=== PATIENT | female | born 1940 | race Caucasian/White ===

== ENCOUNTER 2018-09-14 11:45 | Inpatient (IN) | payer OTHER ==
--- NOTE | 2018-09-14 12:31 | ED PDOC ---
HPI: Abdomen Time Seen by Provider: 09/14/18 12:06 Chief Complaint (Provider): abdominal pain and constipation History Per: Patient History/Exam Limitations: no limitations Onset/Duration Of Symptoms: Days (x3) Current Symptoms Are (Timing): Still Present Associated Symptoms: denies: Fever, Chills, Nausea, Vomiting, Urinary Symptoms Additional Complaint(s): Kylee Oneal is a 78 year old female, with a past medical history of HTN and diabetes, who presents to the emergency department complaining of lower abdominal pain associated with constipation onset for x3 days. Patient states she hasn't had a bowel movement in x3 days but reports she's had difficulty havi ng bowel movements since a colon surgery done x10 years ago. She denies any fever, chills, nausea, vomit or dysuria. No further medical complaints. PMD: Dr. Chan Past Medical History Reviewed: Historical Data, Nursing Documentation, Vital Signs Vital Signs: Last Vital Signs Temp 97.8 F 09/14/18 11:48 Pulse 109 H 09/14/18 11:48 Resp 18 09/14/18 11:48 BP 139/82 09/14/18 11:48 Pulse Ox 96 09/14/18 11:48 - Medical History PMH: Diabetes, HTN - Surgical History Other surgeries: Colon surgery - Family History Family History: States: Unknown Family Hx - Home Medications Home Medications: Ambulatory Orders Medication Instructions Recorded Brimonidine Tartrate [Alphagan P 1 drop OS BID 09/14/18 0.1 % Ophth] Glimepiride [Amaryl] 4 mg PO BID 09/14/18 Latanoprost/Pf [Latanoprost 0.005% 1 drop OS DAILY 09/14/18 Eye Drop] Linagliptin [Tradjenta] 5 mg PO DAILY 09/14/18 Losartan Potassium 100 mg PO DAILY 09/14/18 Nifedipine [Nifedipine ER] 30 mg PO DAILY 09/14/18 metFORMIN [glucOPHAGE] 850 mg PO BID 09/14/18 - Allergies Allergies/Adverse Reactions: Allergies Allergy/AdvReac Type Severity Reaction Status Date / Time No Known Allergies Allergy Verified 09/14/18 12:27 Review of Systems ROS Statement: Except As Marked, All Systems Reviewed And Found Negative Constitutional: Negative for: Fever, Chills Gastrointestinal: Positive for: Abdominal Pain (lower), Constipation. Negative for: Nausea, Vomiting Genitourinary Female: Negative for: Dysuria Physical Exam - Reviewed Nursing Documentation Reviewed: Yes Vital Signs Reviewed: Yes - Physical Exam Appears: Positive for: No Acute Distress Head Exam: Positive for: ATRAUMATIC, NORMAL INSPECTION, NORMOCEPHALIC Skin: Positive for: Normal Color, Warm, Dry Eye Exam: Positive for: Normal appearance, EOMI, PERRL Neck: Positive for: Painless ROM Cardiovascular/Chest: Positive for: Regular Rate, Rhythm. Negative for: Murmur Respiratory: Positive for: Normal Breath Sounds. Negative for: Respiratory Distress Gastrointestinal/Abdominal: Positive for: Normal Exam, Soft. Negative for: Tenderness, Guarding, Rebound Back: Positive for: Normal Inspection. Negative for: L CVA Tenderness, R CVA Tenderness, Vertebral Tenderness Extremity: Positive for: Normal ROM (upper and lower extremities). Negative for: Deformity, Swelling Neurologic/Psych: Positive for: Alert, Oriented - Laboratory Results Result Diagrams: 09/14/18 12:50 09/14/18 14:15 - ECG O2 Sat by Pulse Oximetry: 96 (RA) Pulse Ox Interpretation: Normal Medical Decision Making Medical Decision Making: Time: 12:06 Initial Impression: abdominal pain Initial Plan: --Abd & Pelvis IV Contrast CT --EKG --CMP --Urine dipstick --CBC w/ differential --PTT --PT --Urinalysis --Reevaluation 1700 CT Abdomen and Pelvis FINDINGS: LOWER THORAX: Unremarkable. LIVER: Unremarkable. No gross lesion or ductal dilatation. GALLBLADDER AND BILE DUCTS: Unremarkable. PANCREAS: Unremarkable. No gross lesion or ductal dilatation. SPLEEN: Unremarkable. ADRENALS: Unremarkable. No mass. KIDNEYS AND URETERS: Nonobstructing right upper pole renal calculus, 5 mm. This is unchanged from prior examination. No left renal calculus. Left lower pole exophytic cortical cyst, 1.6 cm, minimally increased in size from prior, likely due to differences in technique of measurement. No hydronephrosis. VASCULATURE: No aortic aneurysm. There is atherosclerotic calcification of the abdominal aorta and iliac vessels. BOWEL: There is mural thickening of the inferior rectum with infiltration of the perirectal fat and presacral edema. Findings may reflect an infectious or inflammatory proctitis. Rule out neoplasm. No other abnormal bowel loops. No bowel obstruction. APPENDIX: Not identified. No secondary findings. PERITONEUM: There is a small supraumbilical ventral hernia in the midline, containing only mesenteric fat. No ascites or pneumoperitoneum. LYMPH NODES: Unremarkable. No enlarged lymph nodes. BLADDER: Unremarkable. REPRODUCTIVE: Status post hysterectomy BONES: No acute fracture. OTHER FINDINGS: None. IMPRESSION: Circumferential mural thickening of the inferior rectum with infiltration of the perirectal fat and abnormal presacral soft tissue edema. Findings concerning for infectious or inflammatory proctitis. Rule out neoplasm. No evidence of abscess. No other acute abnormality. Minor findings as above. Scribe Attestation: Documented by Johnnie Sigala, acting as a scribe for Lona Fierro MD. Provider Scribe Attestation: All medical record entries made by the Scribe were at my direction and personally dictated by me. I have reviewed the chart and agree that the record accurately reflects my personal performance of the history, physical exam, medical decision making, and the department course for this patient. I have also personally directed, reviewed, and agree with the discharge instructions and disposition. Disposition - Clinical Impression Clinical Impression: Proctitis, Sepsis - Patient ED Disposition Is Patient to be Admitted: Yes - Disposition Disposition Time: 17:21 Condition: STABLE - Pt Status Changed To: Hospital Disposition Of: Inpatient - Admit Certification Admit to Inpatient:: After my assessment, the patient will require hosp italization for at least two midnights. This is because of the severity of symptoms shown, intensity of services needed, and/or the medical risk in this patient being treated as an outpatient. - POA Present On Arrival: None
[2018-09-14 13:09] LABS: INR 1.1; PROTHROMBIN TIME 12.1 Seconds (9.8-13.1)
[2018-09-14 13:10] LABS: BASO # 0.1 K/uL (0.0-0.2); BASO % 0.4 % (0.0-2.0); EOS # 0.1 K/uL (0.0-0.7); EOS % 0.4 % (0.0-4.0); HEMOGLOBIN 15.6 g/dL (12.0-16.0); LYMPH # 1.9 K/uL (1.0-4.3); LYMPH % 10.6 % (20.0-40.0); MEAN CELL VOLUME 88.5 fl (81.0-99.0); MEAN CORPUSCULAR HEMOGLOBIN 29.8 pg (27.0-31.0); MEAN CORPUSCULAR HGB CONC 33.7 g/dL (33.0-37.0); MEAN PLATELET VOLUME 8.6 fl (7.2-11.7); MONO # 0.9 K/uL (0.0-0.8); MONO % 4.7 % (0.0-10.0); NEUT # 15.1 K/uL (1.8-7.0); NEUT % 83.9 % (50.0-75.0); NRBC % 0.1 % (0.0-0.0); RBC 5.22 Mil/uL (3.80-5.20); RED CELL DISTRIBUTION WIDTH 13.6 % (11.5-14.5)
[2018-09-14 13:12] LABS: SQUAMOUS EPITHIAL 2 /hpf (0-5); URINE BACTERIA FEW (<OCC); URINE BILIRUBIN NEGATIVE (NEGATIVE); URINE BLOOD SMALL (NEGATIVE); URINE CLARITY SLIGHTY-CLOUDY (Clear); URINE COLOR YELLOW (YELLOW); URINE GLUCOSE (UA) NEG (Normal); URINE LEUKOCYTE ESTERASE NEG Leu/uL (Negative); URINE PROTEIN 30 mg/dL (NEGATIVE); URINE UROBILINOGEN 0.2-1.0 mg/dL (0.2-1.0)
[2018-09-14 14:33] LABS: ALB/GLOB RATIO 1.1 (1.0-2.1); ALT/SGPT 28 U/L (9-52); AST/SGOT 22 U/L (14-36); BLOOD UREA NITROGEN 13 mg/dl (7-17); CALCIUM 9.8 mg/dL (8.4-10.2); GFR NON-AFRICAN AMERICAN > 60
--- NOTE | 2018-09-14 15:05 | CARD ---
APPROVED REPORT Date of service: 09/14/2018 EKG Measurement Heart [id number] <Conclusion> Normal sinus rhythm Normal ECG
--- NOTE | 2018-09-14 15:52 | CT ---
Date of service: 09/14/2018 PROCEDURE: CT Abdomen and Pelvis without intravenous contrast HISTORY: Abd pain COMPARISON: 11/17/2015 TECHNIQUE: Without contrast.. Contrast dose: 0 Radiation dose: Total exam DLP = 559.43 mGy-cm. This CT exam was performed using one or more of the following dose reduction techniques: Automated exposure control, adjustment of the mA and/or kV according to patient size, and/or use of iterative reconstruction technique. FINDINGS: LOWER THORAX: Unremarkable. LIVER: Unremarkable. No gross lesion or ductal dilatation. GALLBLADDER AND BILE DUCTS: Unremarkable. PANCREAS: Unremarkable. No gross lesion or ductal dilatation. SPLEEN: Unremarkable. ADRENALS: Unremarkable. No mass. KIDNEYS AND URETERS: Nonobstructing right upper pole renal calculus, 5 mm. This is unchanged from prior examination. No left renal calculus. Left lower pole exophytic cortical cyst, 1.6 cm, minimally increased in size from prior, likely due to differences in technique of measurement. No hydronephrosis. VASCULATURE: No aortic aneurysm. There is atherosclerotic calcification of the abdominal aorta and iliac vessels. BOWEL: There is mural thickening of the inferior rectum with infiltration of the perirectal fat and presacral edema. Findings may reflect an infectious or inflammatory proctitis. Rule out neoplasm. No other abnormal bowel loops. No bowel obstruction. APPENDIX: Not identified. No secondary findings. PERITONEUM: There is a small supraumbilical ventral hernia in the midline, containing only mesenteric fat. No ascites or pneumoperitoneum. LYMPH NODES: Unremarkable. No enlarged lymph nodes. BLADDER: Unremarkable. REPRODUCTIVE: Status post hysterectomy BONES: No acute fracture. OTHER FINDINGS: None. IMPRESSION: Circumferential mural thickening of the inferior rectum with infiltration of the perirectal fat and abnormal presacral soft tissue edema. Findings concerning for infectious or inflammatory proctitis. Rule out neoplasm. No evidence of abscess. No other acute abnormality. Minor findings as above.
[2018-09-14] MEDS ORDERED: metroNIDAZOLE 500mg/100ml NS 100 ML IV STA (17:13)
[2018-09-14] MEDS ORDERED: Ciprofloxacin 400mg/200ml D5W 400 MG/200 ML BAG IV STA (17:13)
[2018-09-14] MEDS ORDERED: metroNIDAZOLE 500mg/100ml NS 100 ML IVPB ONE (17:23)
[2018-09-14] MEDS ORDERED: Ciprofloxacin 400mg/200ml D5W 400 MG/200 ML BAG IVPB ONE (17:23)
[2018-09-14 17:35] LABS: VENOUS BLOOD GAS BASE EXCESS 0.8 mmol/L (0.0-2.0); VENOUS BLOOD GAS PCO2 46 mmHg (40-60); VENOUS BLOOD GAS PO2 34 mm/Hg (30-55); VENOUS BLOOD PH 7.37 (7.32-7.43)
--- NOTE | 2018-09-14 18:31 | CP.PCM.HP ---
<Yoli Rivers - Last Filed: 09/14/18 20:20> History of Present Illness - History of Present Illness History of Present Illness: 78 year old female presented with complaints of 3 day history of rectal pain. She endorses history of constipation, requiring manual disimpaction that she performs on herself intermittently using a glove. She last performed this 4 days ago, pain began the next day and has persisted. Pain with sitting and bowel movement, daughter denies blood in stool. States she must wear pad due to stool leakage sometimes. She states she has had 2 colonoscopies in the past, unsure of results. No GI doctor. ROS: denies fevers, chills, chest pain, dyspnea, nausea, vomiting, abdominal pain, pedal edema. 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 PMD: Dr. Chan PMH: HTN, DM, HLD, glaucoma, blind in right eye, constipation Allergies: NKDA Social: current smoker 4-5 cigarretes per day since age of 14 ( 16 pack year hx), no etoh use Surgical hx: appendectomy, btl, fibroidectomy Medications: not available for review Present on Admission - Present on Admission Any Indicators Present on Admission: No Review of Systems - Constitutional Constitutional: absent: Chills, Fever, Headache - EENT Eyes: Other (blind left eye, able to see shadows out of left eye). absent: Change in Vision Nose/Mouth/Throat: absent: Nasal Congestion, Nasal Discharge - Cardiovascular Cardiovascular: absent: Chest Pain, Dyspnea, Dyspnea on Exertion, Leg Edema - Respiratory Respiratory: absent: Cough, Dyspnea - Gastrointestinal Gastrointestinal: Constipation, Fecal Incontinence. absent: Bloating, Change in Bowel Habits, Dyspepsia, Excessive Flatus, Hematemesis, Hematochezia, Nausea Past Patient History - Tetanus Immunizations Tetanus Immunization: Unknown - Past Social History Smoking Status: Light Smoker < 10 Cigarettes Daily Alcohol: None Drugs: Denies - CARDIAC Hx Hypertension: Yes - ENDOCRINE/METABOLIC Hx Diabetes Insipidus: Yes - PSYCHIATRIC Hx Substance Use: No - SURGICAL HISTORY Hx Surgeries: Yes Hx Appendectomy: Yes - ANESTHESIA Hx Anesthesia: Yes Meds Allergies/Adverse Reactions: Allergies Allergy/AdvReac Type Severity Reaction Status Date / Time No Known Allergies Allergy Verified 09/14/18 12:27 Physical Exam - Constitutional Appears: Non-toxic, No Acute Distress - Head Exam Head Exam: NORMAL INSPECTION - Eye Exam Eye Exam: absent: PERRL Additional comments: right eye ptosis, unable to see from right eye - ENT Exam ENT Exam: Mucous Membranes Moist - Respiratory Exam Respiratory Exam: Clear to Auscultation Bilateral, NORMAL BREATHING PATTERN. absent: Prolonged Expiratory Phase, Rales, Rhonchi, Wheezes, Respiratory Distress - Cardiovascular Exam Cardiovascular Exam: REGULAR RHYTHM, +S1, +S2 - GI/Abdominal Exam GI & Abdominal Exam: Hypoactive Bowel Sounds, Soft. absent: Distended, Guarding, Tenderness - Rectal Exam Rectal Exam: Hemorrhoids (no external hemorrhoids noted, ), NORMAL INSPECTION - Extremities Exam Extremities exam: Positive for: normal inspection. Negative for: pedal edema, tenderness - Neurological Exam Neurological exam: Alert - Psychiatric Exam Psychiatric exam: Normal Affect, Normal Mood - Skin Skin Exam: Dry, Intact, Normal Color Results - Vital Signs Recent Vital Signs: Last Vital Signs Temp 97.6 F 09/14/18 14:07 Pulse 87 09/14/18 16:44 Resp 20 09/14/18 16:44 BP 148/79 09/14/18 16:44 Pulse Ox 96 09/14/18 17:49 - Labs Result Diagrams: 09/14/18 12:50 09/14/18 14:15 Labs: Laboratory Results - last 24 hr 09/14/18 09/14/18 09/14/18 11:57 12:50 12:50 WBC 18.0 H RBC 5.22 H Hgb 15.6 Hct 46.1 MCV 88.5 MCH 29.8 MCHC 33.7 RDW 13.6 Plt Count 284 MPV 8.6 Neut % (Auto) 83.9 H Lymph % (Auto) 10.6 L [place] % (Auto) 4.7 Eos % (Auto) 0.4 Baso % (Auto) 0.4 Neut # (Auto) 15.1 H Lymph # (Auto) 1.9 [place] # (Auto) 0.9 H Eos # (Auto) 0.1 Baso # (Auto) 0.1 PT 12.1 INR 1.1 APTT 34.0 pO2 VBG pH VBG pCO2 VBG HCO3 VBG Total CO2 VBG O2 Sat (Calc) VBG Base Excess VBG Potassium Glucose Lactate FiO2 Sodium Potassium Chloride Carbon Dioxide Anion Gap BUN Creatinine Est GFR ( Amer) Est GFR (Non-Af Amer) POC Glucose (mg/dL) 133 H Random Glucose Calcium Total Bilirubin AST ALT Alkaline Phosphatase Total Protein Albumin Globulin Albumin/Globulin Ratio Venous Blood Potassium Urine Color Urine Clarity Urine pH Ur Specific [place] Urine Protein Urine Glucose (UA) Urine Ketones Urine Blood Urine Nitrate Urine Bilirubin Urine Urobilinogen Ur Leukocyte Esterase Urine RBC (Auto) Urine Microscopic WBC Ur Squamous Epith Cells Urine Bacteria 09/14/18 09/14/18 09/14/18 13:05 14:15 17:30 WBC RBC Hgb Hct MCV MCH MCHC RDW Plt Count MPV Neut % (Auto) Lymph % (Auto) [place] % (Auto) Eos % (Auto) Baso % (Auto) Neut # (Auto) Lymph # (Auto) [place] # (Auto) Eos # (Auto) Baso # (Auto) PT INR APTT pO2 34 VBG pH 7.37 VBG pCO2 46 VBG HCO3 24.6 VBG Total CO2 28.0 VBG O2 Sat (Calc) 72.7 H VBG Base Excess 0.8 VBG Potassium 4.4 Glucose 157 H Lactate 1.4 FiO2 21.0 Sodium 140 138.0 Potassium 4.2 Chloride 106 105.0 Carbon Dioxide 27 Anion Gap 11 BUN 13 Creatinine 0.8 Est GFR ( Amer) > 60 Est GFR (Non-Af Amer) > 60 POC Glucose (mg/dL) Random Glucose 160 H Calcium 9.8 Total Bilirubin 0.5 AST 22 ALT 28 Alkaline Phosphatase 104 Total Protein 7.7 Albumin 4.0 Globulin 3.7 Albumin/Globulin Ratio 1.1 Venous Blood Potassium 4.4 Urine Color Yellow Urine Clarity Slighty-cloudy Urine pH 7.0 Ur Specific [place] 1.005 Urine Protein 30 Urine Glucose (UA) Neg Urine Ketones Negative Urine Blood Small Urine Nitrate Negative Urine Bilirubin Negative Urine Urobilinogen 0.2-1.0 Ur Leukocyte Esterase Neg Urine RBC (Auto) 1 Urine Microscopic WBC 1 Ur Squamous Epith Cells 2 Urine Bacteria Few H Assessment & Plan - Assessment and Plan (Free Text) Assessment: 78 year old female with history of constipation, admitted for proctitis. She is afebrile, with leukocytosis. Patient is hemodynamically stable. Proctitis noted of CT, likely secondary to patient performing manual disimpaction due to constipation. #Proctitis #Non insulin dependent diabetes mellitus #HTN #DVT prophylaxis -start cipro/flagyl -GI consult -resume home medications -SCDs case d/w attending. <Saravanan Ramirez D - Last Filed: 09/14/18 22:56> Results - Vital Signs Recent Vital Signs: Last Vital Signs Temp 97.7 F 09/14/18 20:36 Pulse 89 09/14/18 20:36 Resp 20 09/14/18 20:36 BP 159/87 H 09/14/18 20:36 Pulse Ox 96 09/14/18 20:36 - Labs Result Diagrams: 09/14/18 12:50 09/14/18 14:15 Labs: Laboratory Results - last 24 hr 09/14/18 09/14/18 09/14/18 11:57 12:50 12:50 WBC 18.0 H RBC 5.22 H Hgb 15.6 Hct 46.1 MCV 88.5 MCH 29.8 MCHC 33.7 RDW 13.6 Plt Count 284 MPV 8.6 Neut % (Auto) 83.9 H Lymph % (Auto) 10.6 L [place] % (Auto) 4.7 Eos % (Auto) 0.4 Baso % (Auto) 0.4 Neut # (Auto) 15.1 H Lymph # (Auto) 1.9 [place] # (Auto) 0.9 H Eos # (Auto) 0.1 Baso # (Auto) 0.1 PT 12.1 INR 1.1 APTT 34.0 pO2 VBG pH VBG pCO2 VBG HCO3 VBG Total CO2 VBG O2 Sat (Calc) VBG Base Excess VBG Potassium Glucose Lactate FiO2 Sodium Potassium Chloride Carbon Dioxide Anion Gap BUN Creatinine Est GFR ( Amer) Est GFR (Non-Af Amer) POC Glucose (mg/dL) 133 H Random Glucose Calcium Total Bilirubin AST ALT Alkaline Phosphatase Total Protein Albumin Globulin Albumin/Globulin Ratio Venous Blood Potassium Urine Color Urine Clarity Urine pH Ur Specific [place] Urine Protein Urine Glucose (UA) Urine Ketones Urine Blood Urine Nitrate Urine Bilirubin Urine Urobilinogen Ur Leukocyte Esterase Urine RBC (Auto) Urine Microscopic WBC Ur Squamous Epith Cells Urine Bacteria 09/14/18 09/14/18 09/14/18 13:05 14:15 17:30 WBC RBC Hgb Hct MCV MCH MCHC RDW Plt Count MPV Neut % (Auto) Lymph % (Auto) [place] % (Auto) Eos % (Auto) Baso % (Auto) Neut # (Auto) Lymph # (Auto) [place] # (Auto) Eos # (Auto) Baso # (Auto) PT INR APTT pO2 34 VBG pH 7.37 VBG pCO2 46 VBG HCO3 24.6 VBG Total CO2 28.0 VBG O2 Sat (Calc) 72.7 H VBG Base Excess 0.8 VBG Potassium 4.4 Glucose 157 H Lactate 1.4 FiO2 21.0 Sodium 140 138.0 Potassium 4.2 Chloride 106 105.0 Carbon Dioxide 27 Anion Gap 11 BUN 13 Creatinine 0.8 Est GFR ( Amer) > 60 Est GFR (Non-Af Amer) > 60 POC Glucose (mg/dL) Random Glucose 160 H Calcium 9.8 Total Bilirubin 0.5 AST 22 ALT 28 Alkaline Phosphatase 104 Total Protein 7.7 Albumin 4.0 Globulin 3.7 Albumin/Globulin Ratio 1.1 Venous Blood Potassium 4.4 Urine Color Yellow Urine Clarity Slighty-cloudy Urine pH 7.0 Ur Specific [place] 1.005 Urine Protein 30 Urine Glucose (UA) Neg Urine Ketones Negative Urine Blood Small Urine Nitrate Negative Urine Bilirubin Negative Urine Urobilinogen 0.2-1.0 Ur Leukocyte Esterase Neg Urine RBC (Auto) 1 Urine Microscopic WBC 1 Ur Squamous Epith Cells 2 Urine Bacteria Few H 09/14/18 09/14/18 18:32 21:06 WBC RBC Hgb Hct MCV MCH MCHC RDW Plt Count MPV Neut % (Auto) Lymph % (Auto) [place] % (Auto) Eos % (Auto) Baso % (Auto) Neut # (Auto) Lymph # (Auto) [place] # (Auto) Eos # (Auto) Baso # (Auto) PT INR APTT pO2 VBG pH VBG pCO2 VBG HCO3 VBG Total CO2 VBG O2 Sat (Calc) VBG Base Excess VBG Potassium Glucose Lactate FiO2 Sodium Potassium Chloride Carbon Dioxide Anion Gap BUN Creatinine Est GFR ( Amer) Est GFR (Non-Af Amer) POC Glucose (mg/dL) 239 H 161 H Random Glucose Calcium Total Bilirubin AST ALT Alkaline Phosphatase Total Protein Albumin Globulin Albumin/Globulin Ratio Venous Blood Potassium Urine Color Urine Clarity Urine pH Ur Specific [place] Urine Protein Urine Glucose (UA) Urine Ketones Urine Blood Urine Nitrate Urine Bilirubin Urine Urobilinogen Ur Leukocyte Esterase Urine RBC (Auto) Urine Microscopic WBC Ur Squamous Epith Cells Urine Bacteria Attending/Attestation - Attestation I have personally seen and examined this patient.: Yes I have fully participated in the care of the patient.: Yes I have reviewed all pertinent clinical information: Yes
[2018-09-14] MEDS: Ciprofloxacin 400mg/200ml D5W 400 MG/200 ML BAG IVPB SCH (21:02)
[2018-09-15] MEDS: metroNIDAZOLE 500mg/100ml NS 100 ML IVPB SCH ×3 (00:21→16:24)
[2018-09-15 06:25] LABS: BASO # 0.1 K/uL (0.0-0.2); BASO % 0.6 % (0.0-2.0); EOS # 0.1 K/uL (0.0-0.7); EOS % 0.4 % (0.0-4.0); HEMOGLOBIN 14.1 g/dL (12.0-16.0); LYMPH # 2.3 K/uL (1.0-4.3); LYMPH % 16.4 % (20.0-40.0); MEAN CELL VOLUME 88.8 fl (81.0-99.0); MEAN CORPUSCULAR HEMOGLOBIN 29.6 pg (27.0-31.0); MEAN CORPUSCULAR HGB CONC 33.4 g/dL (33.0-37.0); MEAN PLATELET VOLUME 8.8 fl (7.2-11.7); MONO # 0.8 K/uL (0.0-0.8); NEUT # 10.7 K/uL (1.8-7.0); NEUT % 76.6 % (50.0-75.0); NRBC % 0.1 % (0.0-0.0); RBC 4.76 Mil/uL (3.80-5.20); RED CELL DISTRIBUTION WIDTH 13.4 % (11.5-14.5); WHITE BLOOD COUNT 13.9 K/uL (4.8-10.8)
[2018-09-15 06:35] LABS: BLOOD UREA NITROGEN 13 mg/dl (7-17); CALCIUM 9.2 mg/dL (8.4-10.2); GFR NON-AFRICAN AMERICAN > 60
[2018-09-15] MEDS: Brimonidine 0.2% 50 DROP/5 ML BOTTLE OS SCH ×2 (09:00→17:04)
[2018-09-15] MEDS: Latanoprost 0.005% Opht SOUTION OS SCH (09:00)
[2018-09-15] MEDS ORDERED: Pantoprazole 40 mg EC Tab PO SCH (09:00)
[2018-09-15] MEDS: Ciprofloxacin 400mg/200ml D5W 400 MG/200 ML BAG IVPB SCH ×2 (10:15→21:38)
--- NOTE | 2018-09-15 10:32 | CP.PCM.PN ---
<Michelle Cedeno - Last Filed: 09/15/18 11:42> Subjective - Date & Time of Evaluation Date of Evaluation: 09/15/18 Time of Evaluation: 08:15 - Subjective Subjective: No acute overnight events. Continues to endorse rectal pain, but better then previously. Denies chest pain, dyspnea, abdominal pain, n/v. Objective - Vital Signs/Intake and Output Vital Signs (last 24 hours): Temp Pulse Resp BP Pulse Ox 98.0 F 75 19 114/69 97 09/15/18 07:54 09/15/18 08:59 09/15/18 07:54 09/15/18 08:59 09/15/18 07:54 - Medications Medications: Current Medications Acetaminophen (Tylenol 325mg Tab) 650 mg PO Q6 PRN PRN Reason: Pain, Mild (1-3) Brimonidine Tartrate (Alphagan 0.2% Opht) 1 drop OS BID [facility] Last Admin: 09/15/18 09:00 Dose: 1 drop Docusate Sodium (Colace) 100 mg PO BID [facility] Last Admin: 09/15/18 08:59 Dose: 100 mg Ciprofloxacin (Cipro 400mg/200ml Dsw) 400 mg in 200 mls @ 200 mls/hr IVPB Q12 [facility]; Protocol Last Admin: 09/15/18 10:15 Dose: 200 mls/hr Metronidazole (Flagyl 500mg/100ml Ns) 100 mls @ 100 mls/hr IVPB Q8 [facility]; Protocol Last Admin: 09/15/18 08:59 Dose: 100 mls/hr Latanoprost (Xalatan Opht) 1 drop OS DAILY [facility] Last Admin: 09/15/18 09:00 Dose: 1 drop Losartan Potassium (Cozaar) 100 mg PO DAILY [facility] Last Admin: 09/15/18 08:59 Dose: 100 mg Metformin HCl (Glucophage) 850 mg PO BID [facility] Last Admin: 09/15/18 09:00 Dose: 850 mg Pantoprazole Sodium (Protonix Ec Tab) 40 mg PO DAILY [facility] Last Admin: 09/15/18 08:59 Dose: 40 mg Sitagliptin Phosphate (Januvia) 50 mg PO DAILY [facility] Last Admin: 09/15/18 09:00 Dose: 50 mg - Labs Labs: 09/15/18 05:40 09/15/18 05:40 PT 12.1 Seconds (9.8-13.1) 09/14/18 12:50 INR 1.1 09/14/18 12:50 APTT 34.0 Seconds (25.6-37.1) 09/14/18 12:50 - Constitutional Appears: No Acute Distress - Head Exam Head Exam: NORMAL INSPECTION - ENT Exam ENT Exam: Mucous Membranes Moist - Respiratory Exam Respiratory Exam: Clear to Ausculation Bilateral, NORMAL BREATHING PATTERN. absent: Wheezes - Cardiovascular Exam Cardiovascular Exam: REGULAR RHYTHM, +S1, +S2 - GI/Abdominal Exam GI & Abdominal Exam: Soft, Normal Bowel Sounds. absent: Tenderness - Extremities Exam Extremities Exam: Normal Inspection - Neurological Exam Neurological Exam: Alert, Awake Assessment and Plan - Assessment and Plan (Free Text) Assessment: Assessment/Plan: 78 YO female with PMHx of HTN, NIDDM and constipation is admitted proctitis. Pt remains afebrile, leukocytosis with neutrophilia. CT of abd and pelvis: mural thickening of the inferior rectum with infiltration of the perirectal fat. Proctitis -likely 2/2 to constipation and impaction -cont cipro/flagyl -GI consulted; follow up recs -dulcolax, colace and miralax for constipation -pending bcx NIDDM -Chronic -pending HbA1c -cont home meds -low dose correction HTN -chornic, well controlled -cont home meds DVT prophylaxis -Lovenox sc -SCDs, ambulatory <Viviane Ann - Last Filed: 09/16/18 11:23> Objective - Vital Signs/Intake and Output Vital Signs (last 24 hours): Temp Pulse Resp BP Pulse Ox 98.1 F 71 19 125/72 95 09/16/18 07:59 09/16/18 08:41 09/16/18 07:59 09/16/18 08:41 09/16/18 07:59 - Medications Medications: Current Medications Acetaminophen (Tylenol 325mg Tab) 650 mg PO Q6 PRN PRN Reason: Pain, Mild (1-3) Brimonidine Tartrate (Alphagan 0.2% Opht) 1 drop OS BID [facility] Last Admin: 09/16/18 08:40 Dose: 1 drop Dextrose (Dextrose 50% Inj) 0 ml IV STAT PRN; Protocol PRN Reason: Hypoglycemia Protocol Dextrose (Glutose 15) 0 gm PO ONCE PRN; Protocol PRN Reason: Hypoglycemia Protocol Enoxaparin Sodium (Lovenox) 40 mg SC DAILY [facility]; Protocol Last Admin: 09/16/18 08:39 Dose: 40 mg Glucagon (Glucagen Diagnostic Kit) 0 mg IM STAT PRN; Protocol PRN Reason: Hypoglycemia Protocol Ciprofloxacin (Cipro 400mg/200ml Dsw) 400 mg in 200 mls @ 200 mls/hr IVPB Q12 [facility]; Protocol Last Admin: 09/15/18 21:38 Dose: 200 mls/hr Metronidazole (Flagyl 500mg/100ml Ns) 100 mls @ 100 mls/hr IVPB Q8 [facility]; Protocol Last Admin: 09/16/18 00:50 Dose: 100 mls/hr Insulin Human Regular (Humulin R) 0 units SC ACHS [facility]; Protocol Last Admin: 09/16/18 08:45 Dose: Not Given Latanoprost (Xalatan Opht) 1 drop OS DAILY [facility] Last Admin: 09/16/18 08:41 Dose: 1 drop Losartan Potassium (Cozaar) 100 mg PO DAILY [facility] Last Admin: 09/16/18 08:41 Dose: 100 mg Metformin HCl (Glucophage) 850 mg PO BID [facility] Last Admin: 09/16/18 08:39 Dose: 850 mg Sitagliptin Phosphate (Januvia) 50 mg PO DAILY [facility] Last Admin: 09/16/18 08:41 Dose: 50 mg - Labs Labs: 09/16/18 05:25 09/15/18 05:40 PT 12.1 Seconds (9.8-13.1) 09/14/18 12:50 INR 1.1 09/14/18 12:50 APTT 34.0 Seconds (25.6-37.1) 09/14/18 12:50 Attending/Attestation - Attestation I have personally seen and examined this patient.: Yes I have fully participated in the care of the patient.: Yes I have reviewed all pertinent clinical information, including history, physical exam and plan: Yes Notes (Text): 09/16/18 11:23 Agree with findings and plan as above. Pt admitted for proctitis, improving, +constipation also improving. Stable, GI consult appreciated.
[2018-09-15] MEDS ORDERED: Bisacodyl 5mg EC Tab PO ONE (10:35)
[2018-09-15] MEDS ORDERED: Glucagon Recombinant 1 mg Inj IM PRN (10:40)
[2018-09-15] MEDS ORDERED: Dextrose 50% SYRINGE Inj (50 ml) IV PRN (10:40)
[2018-09-15] MEDS ORDERED: POLYETHYLENE GLYCOL 3350 17 GM/Dose PACKET PO SCH (10:45)
[2018-09-15] MEDS: Insulin Regular 100 units/ml SC SCH ×3 (12:05→21:38)
--- NOTE | 2018-09-15 13:24 | CP.PCM.PN ---
Subjective - Date & Time of Evaluation Date of Evaluation: 09/15/18 Time of Evaluation: 09:00 - Subjective Subjective: GI Fellow PGY5 Consult Note This is a 78 year old female with pmhx of HTN, DM, HLD, glaucoma, blind in right eye, constipation presenting with complaints of 6 days of constipation and rectal pain. She endorses history of constipation, for the past one year requiring manual disimpaction that she performs on herself everyday using a glov e. She reports having a small BM daily but with a lot of straining and incomplete evacuation. She reports taking multiple laxatives with no relief of symptoms. Pt denies blood in stool. She states she has had 2 colonoscopies in the past, last one was with Dr. Dallas Dalal, not sure of results. She reports some unintentional weightless in the last 1yr. No N/V, she has abdominal pain and cramping at times. No family hx of colon cancer. ROS: A 12pt ROS was negative except as above PMH: As stated in HPI SHx: current smoker 4-5 cigarettes per day, no etoh or drug use PSHx: Appendectomy FHx: Neg for colon cancer Objective - Vital Signs/Intake and Output Vital Signs (last 24 hours): Temp Pulse Resp BP Pulse Ox 98.0 F 75 19 114/69 97 09/15/18 07:54 09/15/18 08:59 09/15/18 07:54 09/15/18 08:59 09/15/18 07:54 - Medications Medications: Current Medications Acetaminophen (Tylenol 325mg Tab) 650 mg PO Q6 PRN PRN Reason: Pain, Mild (1-3) Bisacodyl (Dulcolax) 10 mg MD DAILY [facility] Last Admin: 09/15/18 11:45 Dose: 10 mg Brimonidine Tartrate (Alphagan 0.2% Opht) 1 drop OS BID [facility] Last Admin: 09/15/18 09:00 Dose: 1 drop Dextrose (Dextrose 50% Inj) 0 ml IV STAT PRN; Protocol PRN Reason: Hypoglycemia Protocol Dextrose (Glutose 15) 0 gm PO ONCE PRN; Protocol PRN Reason: Hypoglycemia Protocol Enoxaparin Sodium (Lovenox) 40 mg SC DAILY [facility]; Protocol Glucagon (Glucagen Diagnostic Kit) 0 mg IM STAT PRN; Protocol PRN Reason: Hypoglycemia Protocol Ciprofloxacin (Cipro 400mg/200ml Dsw) 400 mg in 200 mls @ 200 mls/hr IVPB Q12 [facility]; Protocol Last Admin: 09/15/18 10:15 Dose: 200 mls/hr Metronidazole (Flagyl 500mg/100ml Ns) 100 mls @ 100 mls/hr IVPB Q8 [facility]; Protocol Last Admin: 09/15/18 08:59 Dose: 100 mls/hr Insulin Human Regular (Humulin R) 0 units SC ACHS [facility]; Protocol Latanoprost (Xalatan Opht) 1 drop OS DAILY [facility] Last Admin: 09/15/18 09:00 Dose: 1 drop Losartan Potassium (Cozaar) 100 mg PO DAILY [facility] Last Admin: 09/15/18 08:59 Dose: 100 mg Metformin HCl (Glucophage) 850 mg PO BID [facility] Last Admin: 09/15/18 09:00 Dose: 850 mg Polyethylene Glycol (Miralax) 17 gm PO DAILY [facility] Last Admin: 09/15/18 11:45 Dose: 17 gm Sitagliptin Phosphate (Januvia) 50 mg PO DAILY [facility] Last Admin: 09/15/18 09:00 Dose: 50 mg - Labs Labs: 09/15/18 05:40 09/15/18 05:40 PT 12.1 Seconds (9.8-13.1) 09/14/18 12:50 INR 1.1 09/14/18 12:50 APTT 34.0 Seconds (25.6-37.1) 09/14/18 12:50
--- NOTE | 2018-09-15 13:26 | CP.PCM.CON ---
History of Present Illness - History of Present Illness History of Present Illness: GI Fellow PGY5 Consult Note This is a 78 year old female with pmhx of HTN, DM, HLD, glaucoma, blind in right eye, constipation presenting with complaints of 6 days of constipation and rectal pain. She endorses history of constipation, for the past one year requiring manual disimpaction that she performs on herself everyday using a ifeanyi ve. She reports having a small BM daily but with a lot of straining and incomplete evacuation. She reports taking multiple laxatives with no relief of symptoms. Pt denies blood in stool. She states she has had 2 colonoscopies in the past, last one was with Dr. Dallas Dalal, not sure of results. She reports some unintentional weightless in the last 1yr. No N/V, she has abdominal pain and cramping at times. No family hx of colon cancer. ROS: A 12pt ROS was negative except as above PMH: As stated in HPI SHx: current smoker 4-5 cigarettes per day, no etoh or drug use PSHx: Appendectomy FHx: Neg for colon cancer Past Patient History - Tetanus Immunizations Tetanus Immunization: Unknown - Past Medical History & Family History Past Medical History?: Yes - Past Social History Smoking Status: Current Some Days Smoker - CARDIAC Hx Cardiac Disorders: Yes Hx Hypertension: Yes - PULMONARY Hx Respiratory Disorders: Yes Other/Comment: current smoker 4 cigs a day - NEUROLOGICAL Hx Neurological Disorder: No - HEENT Hx HEENT Problems: Yes Hx Glaucoma: Yes - RENAL Hx Chronic Kidney Disease: No - ENDOCRINE/METABOLIC Hx Endocrine Disorders: Yes Hx Diabetes Insipidus: Yes - HEMATOLOGICAL/ONCOLOGICAL Hx Blood Disorders: No Hx AIDS: No Hx Hepatitis C: No Hx Human Immunodeficiency Virus (HIV): No - INTEGUMENTARY Hx Dermatological Problems: No - MUSCULOSKELETAL/RHEUMATOLOGICAL Hx Musculoskeletal Disorders: Yes Hx Falls: Yes (reports fall 5 months ago hit head, denies having injuries p fall) - GASTROINTESTINAL Hx Gastrointestinal Disorders: No - GENITOURINARY/GYNECOLOGICAL Hx Genitourinary Disorders: No - PSYCHIATRIC Hx Psychophysiologic Disorder: No Hx Substance Use: No - SURGICAL HISTORY Hx Surgeries: Yes Hx Appendectomy: Yes Hx Hysterectomy: Yes Other/Comment: fibroid removal [address] Langston - ANESTHESIA Hx Anesthesia: Yes Meds Allergies/Adverse Reactions: Allergies Allergy/AdvReac Type Severity Reaction Status Date / Time No Known Allergies Allergy Verified 09/14/18 12:27 - Medications Medications: Current Medications Acetaminophen (Tylenol 325mg Tab) 650 mg PO Q6 PRN PRN Reason: Pain, Mild (1-3) Bisacodyl (Dulcolax) 10 mg NE DAILY [facility] Last Admin: 09/15/18 11:45 Dose: 10 mg Brimonidine Tartrate (Alphagan 0.2% Opht) 1 drop OS BID [facility] Last Admin: 09/15/18 09:00 Dose: 1 drop Dextrose (Dextrose 50% Inj) 0 ml IV STAT PRN; Protocol PRN Reason: Hypoglycemia Protocol Dextrose (Glutose 15) 0 gm PO ONCE PRN; Protocol PRN Reason: Hypoglycemia Protocol Enoxaparin Sodium (Lovenox) 40 mg SC DAILY [facility]; Protocol Glucagon (Glucagen Diagnostic Kit) 0 mg IM STAT PRN; Protocol PRN Reason: Hypoglycemia Protocol Ciprofloxacin (Cipro 400mg/200ml Dsw) 400 mg in 200 mls @ 200 mls/hr IVPB Q12 [facility]; Protocol Last Admin: 09/15/18 10:15 Dose: 200 mls/hr Metronidazole (Flagyl 500mg/100ml Ns) 100 mls @ 100 mls/hr IVPB Q8 [facility]; Protocol Last Admin: 09/15/18 08:59 Dose: 100 mls/hr Insulin Human Regular (Humulin R) 0 units SC ACHS [facility]; Protocol Latanoprost (Xalatan Opht) 1 drop OS DAILY [facility] Last Admin: 09/15/18 09:00 Dose: 1 drop Losartan Potassium (Cozaar) 100 mg PO DAILY [facility] Last Admin: 09/15/18 08:59 Dose: 100 mg Metformin HCl (Glucophage) 850 mg PO BID [facility] Last Admin: 09/15/18 09:00 Dose: 850 mg Polyethylene Glycol (Miralax) 17 gm PO DAILY [facility] Last Admin: 09/15/18 11:45 Dose: 17 gm Sitagliptin Phosphate (Januvia) 50 mg PO DAILY [facility] Last Admin: 09/15/18 09:00 Dose: 50 mg Physical Exam - Constitutional Appears: Non-toxic, No Acute Distress - Head Exam Head Exam: ATRAUMATIC, NORMAL INSPECTION, NORMOCEPHALIC - ENT Exam ENT Exam: Mucous Membranes Moist - Neck Exam Neck exam: Positive for: Full Rom, Normal Inspection - Respiratory Exam Respiratory Exam: Clear to Auscultation Bilateral, NORMAL BREATHING PATTERN - Cardiovascular Exam Cardiovascular Exam: RRR, +S1, +S2 - GI/Abdominal Exam GI & Abdominal Exam: Normal Bowel Sounds, Soft. absent: Distended, Firm, Guarding, Organomegaly, Tenderness - Rectal Exam Rectal Exam: Deferred - Extremities Exam Extremities exam: Positive for: full ROM, normal inspection - Neurological Exam Neurological exam: Alert, Oriented x3 - Psychiatric Exam Psychiatric exam: Normal Affect, Normal Mood - Skin Skin Exam: Dry, Intact, Normal Color, Warm Results - Vital Signs Recent Vital Signs: Last Vital Signs Temp 98.0 F 09/15/18 07:54 Pulse 75 09/15/18 08:59 Resp 19 09/15/18 07:54 BP 114/69 09/15/18 08:59 Pulse Ox 97 09/15/18 07:54 - Labs Result Diagrams: 09/15/18 05:40 09/15/18 05:40 Labs: Laboratory Results - last 24 hr 09/14/18 09/14/18 09/14/18 14:15 17:30 18:32 WBC RBC Hgb Hct MCV MCH MCHC RDW Plt Count MPV Neut % (Auto) Lymph % (Auto) [place] % (Auto) Eos % (Auto) Baso % (Auto) Neut # (Auto) Lymph # (Auto) [place] # (Auto) Eos # (Auto) Baso # (Auto) pO2 34 VBG pH 7.37 VBG pCO2 46 VBG HCO3 24.6 VBG Total CO2 28.0 VBG O2 Sat (Calc) 72.7 H VBG Base Excess 0.8 VBG Potassium 4.4 Glucose 157 H Lactate 1.4 FiO2 21.0 Sodium 140 138.0 Potassium 4.2 Chloride 106 105.0 Carbon Dioxide 27 Anion Gap 11 BUN 13 Creatinine 0.8 Est GFR ( Amer) > 60 Est GFR (Non-Af Amer) > 60 POC Glucose (mg/dL) 239 H Random Glucose 160 H Hemoglobin A1c Calcium 9.8 Total Bilirubin 0.5 AST 22 ALT 28 Alkaline Phosphatase 104 Total Protein 7.7 Albumin 4.0 Globulin 3.7 Albumin/Globulin Ratio 1.1 Venous Blood Potassium 4.4 09/14/18 09/15/18 09/15/18 21:06 05:22 05:40 WBC 13.9 H RBC 4.76 Hgb 14.1 Hct 42.3 MCV 88.8 MCH 29.6 MCHC 33.4 RDW 13.4 Plt Count 240 MPV 8.8 Neut % (Auto) 76.6 H Lymph % (Auto) 16.4 L [place] % (Auto) 6.0 Eos % (Auto) 0.4 Baso % (Auto) 0.6 Neut # (Auto) 10.7 H Lymph # (Auto) 2.3 [place] # (Auto) 0.8 Eos # (Auto) 0.1 Baso # (Auto) 0.1 pO2 VBG pH VBG pCO2 VBG HCO3 VBG Total CO2 VBG O2 Sat (Calc) VBG Base Excess VBG Potassium Glucose Lactate FiO2 Sodium Potassium Chloride Carbon Dioxide Anion Gap BUN Creatinine Est GFR ( Amer) Est GFR (Non-Af Amer) POC Glucose (mg/dL) 161 H 117 H Random Glucose Hemoglobin A1c Calcium Total Bilirubin AST ALT Alkaline Phosphatase Total Protein Albumin Globulin Albumin/Globulin Ratio Venous Blood Potassium 09/15/18 09/15/18 09/15/18 05:40 05:40 10:33 WBC RBC Hgb Hct MCV MCH MCHC RDW Plt Count MPV Neut % (Auto) Lymph % (Auto) [place] % (Auto) Eos % (Auto) Baso % (Auto) Neut # (Auto) Lymph # (Auto) [place] # (Auto) Eos # (Auto) Baso # (Auto) pO2 VBG pH VBG pCO2 VBG HCO3 VBG Total CO2 VBG O2 Sat (Calc) VBG Base Excess VBG Potassium Glucose Lactate FiO2 Sodium 141 Potassium 4.2 Chloride 108 H Carbon Dioxide 26 Anion Gap 11 BUN 13 Creatinine 0.9 Est GFR ( Amer) > 60 Est GFR (Non-Af Amer) > 60 POC Glucose (mg/dL) 160 H Random Glucose 130 H Hemoglobin A1c 6.7 H Calcium 9.2 Total Bilirubin AST ALT Alkaline Phosphatase Total Protein Albumin Globulin Albumin/Globulin Ratio Venous Blood Potassium Assessment & Plan - Assessment and Plan (Free Text) Assessment: 1. Constipation 2. Proctitis 3. Fecal impaction 4. Hx of HTN 5. Hx of Dm Plan: -Continue supportive care with pain control and antiemetics -CT imaging reviewed with thickening of rectal wall concern for proctitis, stool impaction and r/o underlying malignancy -Pt will need outpt colonoscopy -Will request prior reports for colonoscopy -Order one time dulcolax suppository, one time po dose -Miralax daily -Abx -IVF -Diet as tolerated -Will continue to follow pt closely
[2018-09-15] MEDS ORDERED: Magnesium Citrate Oral SOL (300 ml) PO ONE (15:45)
[2018-09-15 17:01] VITALS: BMI 30.2
[2018-09-16 00:29] VITALS: O2SAT 95
[2018-09-16] MEDS: metroNIDAZOLE 500mg/100ml NS 100 ML IVPB SCH (00:50)
[2018-09-16 07:05] LABS: BASO # 0.1 K/uL (0.0-0.2); BASO % 0.4 % (0.0-2.0); EOS % 0.1 % (0.0-4.0); HEMOGLOBIN 14.1 g/dL (12.0-16.0); LYMPH # 1.9 K/uL (1.0-4.3); LYMPH % 12.8 % (20.0-40.0); MEAN CELL VOLUME 88.4 fl (81.0-99.0); MEAN CORPUSCULAR HEMOGLOBIN 29.3 pg (27.0-31.0); MEAN CORPUSCULAR HGB CONC 33.1 g/dL (33.0-37.0); MEAN PLATELET VOLUME 8.8 fl (7.2-11.7); MONO # 0.8 K/uL (0.0-0.8); MONO % 5.6 % (0.0-10.0); NEUT % 81.1 % (50.0-75.0); NRBC % 0.1 % (0.0-0.0); RBC 4.8 Mil/uL (3.80-5.20); RED CELL DISTRIBUTION WIDTH 13.7 % (11.5-14.5); WHITE BLOOD COUNT 14.8 K/uL (4.8-10.8)
[2018-09-16 07:59] VITALS: PULSE 71; RESP 19; TEMP 98.1
[2018-09-16] MEDS: Brimonidine 0.2% 50 DROP/5 ML BOTTLE OS SCH (08:40)
[2018-09-16] MEDS: Latanoprost 0.005% Opht SOUTION OS SCH (08:41)
[2018-09-16] MEDS: Insulin Regular 100 units/ml SC SCH (08:45)
[2018-09-16 08:46] VITALS: BP 125/72
[2018-09-16] MEDS ORDERED: Enoxaparin 40 mg Syringe SC SCH (09:00)
--- NOTE | 2018-09-16 10:00 | CP.PCM.DIS ---
<Michelle Cedeno - Last Filed: 09/16/18 10:02> Provider - Provider Date of Admission: 09/14/18 17:21 Attending physician: Saravanan Ramirez MD Time Spent in preparation of Discharge (in minutes): 35 Diagnosis - Discharge Diagnosis (1) Proctitis Status: Acute (2) Sepsis Status: Resolved Hospital Course - Lab Results Lab Results: Most Recent Lab Values WBC 14.8 K/uL (4.8-10.8) H 09/16/18 05:25 RBC 4.80 Mil/uL (3.80-5.20) 09/16/18 05:25 Hgb 14.1 g/dL (12.0-16.0) 09/16/18 05:25 Hct 42.5 % (34.0-47.0) 09/16/18 05:25 MCV 88.4 fl (81.0-99.0) 09/16/18 05:25 MCH 29.3 pg (27.0-31.0) 09/16/18 05:25 MCHC 33.1 g/dL (33.0-37.0) 09/16/18 05:25 RDW 13.7 % (11.5-14.5) 09/16/18 05:25 Plt Count 269 K/uL (130-400) 09/16/18 05:25 MPV 8.8 fl (7.2-11.7) 09/16/18 05:25 Neut % (Auto) 81.1 % (50.0-75.0) H 09/16/18 05:25 Lymph % (Auto) 12.8 % (20.0-40.0) L 09/16/18 05:25 [place] % (Auto) 5.6 % (0.0-10.0) 09/16/18 05:25 Eos % (Auto) 0.1 % (0.0-4.0) 09/16/18 05:25 Baso % (Auto) 0.4 % (0.0-2.0) 09/16/18 05:25 Neut # (Auto) 12.0 K/uL (1.8-7.0) H 09/16/18 05:25 Lymph # (Auto) 1.9 K/uL (1.0-4.3) 09/16/18 05:25 [place] # (Auto) 0.8 K/uL (0.0-0.8) 09/16/18 05:25 Eos # (Auto) 0.0 K/uL (0.0-0.7) 09/16/18 05:25 Baso # (Auto) 0.1 K/uL (0.0-0.2) 09/16/18 05:25 PT 12.1 Seconds (9.8-13.1) 09/14/18 12:50 INR 1.1 09/14/18 12:50 APTT 34.0 Seconds (25.6-37.1) 09/14/18 12:50 pO2 34 mm/Hg (30-55) 09/14/18 17:30 VBG pH 7.37 (7.32-7.43) 09/14/18 17:30 VBG pCO2 46 mmHg (40-60) 09/14/18 17:30 VBG HCO3 24.6 mmol/L 09/14/18 17:30 VBG Total CO2 28.0 mmol/L (22-28) 09/14/18 17:30 VBG O2 Sat (Calc) 72.7 % (40-65) H 09/14/18 17:30 VBG Base Excess 0.8 mmol/L (0.0-2.0) 09/14/18 17:30 VBG Potassium 4.4 mmol/L (3.6-5.2) 09/14/18 17:30 Sodium 138.0 mmol/L (132-148) 09/14/18 17:30 Chloride 105.0 mmol/L (98-107) 09/14/18 17:30 Glucose 157 mg/dL (65-105) H 09/14/18 17:30 Lactate 1.4 mmol/L (0.7-2.1) 09/14/18 17:30 FiO2 21.0 % 09/14/18 17:30 Sodium 141 mmol/l (132-148) 09/15/18 05:40 Potassium 4.2 MMOL/L (3.6-5.0) 09/15/18 05:40 Chloride 108 mmol/L (98-107) H 09/15/18 05:40 Carbon Dioxide 26 mmol/L (22-30) 09/15/18 05:40 Anion Gap 11 (10-20) 09/15/18 05:40 BUN 13 mg/dl (7-17) 09/15/18 05:40 Creatinine 0.9 mg/dl (0.7-1.2) 09/15/18 05:40 Est GFR ( Amer) > 60 09/15/18 05:40 Est GFR (Non-Af Amer) > 60 09/15/18 05:40 POC Glucose (mg/dL) 105 mg/dL (65-110) 09/16/18 05:17 Random Glucose 130 mg/dL (65-105) H 09/15/18 05:40 Hemoglobin A1c 6.7 % (4.2-6.5) H 09/15/18 05:40 Calcium 9.2 mg/dL (8.4-10.2) 09/15/18 05:40 Total Bilirubin 0.5 mg/dl (0.2-1.3) 09/14/18 14:15 AST 22 U/L (14-36) 09/14/18 14:15 ALT 28 U/L (9-52) 09/14/18 14:15 Alkaline Phosphatase 104 U/L (38-126) 09/14/18 14:15 Total Protein 7.7 G/DL (6.3-8.2) 09/14/18 14:15 Albumin 4.0 g/dL (3.5-5.0) 09/14/18 14:15 Globulin 3.7 gm/dL (2.2-3.9) 09/14/18 14:15 Albumin/Globulin Ratio 1.1 (1.0-2.1) 09/14/18 14:15 Venous Blood Potassium 4.4 mmol/L (3.6-5.2) 09/14/18 17:30 Urine Color Yellow (YELLOW) 09/14/18 13:05 Urine Clarity Slighty-cloudy (Clear) 09/14/18 13:05 Urine pH 7.0 (5.0-8.0) 09/14/18 13:05 Ur Specific [place] 1.005 (1.003-1.030) 09/14/18 13:05 Urine Protein 30 mg/dL (NEGATIVE) 09/14/18 13:05 Urine Glucose (UA) Neg mg/dL (Normal) 09/14/18 13:05 Urine Ketones Negative mg/dL (NEGATIVE) 09/14/18 13:05 Urine Blood Small (NEGATIVE) 09/14/18 13:05 Urine Nitrate Negative (NEGATIVE) 09/14/18 13:05 Urine Bilirubin Negative (NEGATIVE) 09/14/18 13:05 Urine Urobilinogen 0.2-1.0 mg/dL (0.2-1.0) 09/14/18 13:05 Ur Leukocyte Esterase Neg Swapna/uL (Negative) 09/14/18 13:05 Urine RBC (Auto) 1 /hpf (0-3) 09/14/18 13:05 Urine Microscopic WBC 1 /hpf (0-5) 09/14/18 13:05 Ur Squamous Epith Cells 2 /hpf (0-5) 09/14/18 13:05 Urine Bacteria Few (<OCC) H 09/14/18 13:05 - Hospital Course Hospital Course: 78 YO female with PMHx of HTN, NIDDM and constipation is admitted proctitis and was initially septic. Sepsis has resolved, pt remains afebrile. GI was consulted and pt was started on bowel regimen for constipation and cont abx. Patient had bowel movements overnight, feeling better this AM. Cleared by GI for discharge home. Will d/c patient home with PO antibiotics and follow up with PMD, Dr. Chan in 1 week. Discharge Exam - Head Exam Head Exam: ATRAUMATIC, NORMAL INSPECTION, NORMOCEPHALIC - Eye Exam Eye Exam: EOMI, Normal appearance - ENT Exam ENT Exam: Mucous Membranes Moist - Respiratory Exam Respiratory Exam: Clear to PA & Lateral, NORMAL BREATHING PATTERN. absent: Wheezes - Cardiovascular Exam Cardiovascular Exam: REGULAR RHYTHM, +S1, +S2 - GI/Abdominal Exam GI & Abdominal Exam: Normal Bowel Sounds, Soft. absent: Tenderness - Extremities Exam Extremities exam: normal inspection - Neurological Exam Neurological exam: Alert Discharge Plan - Discharge Medications Prescriptions: RX: Ciprofloxacin [Cipro] 250 mg PO BID 7 Days #14 tab Docusate Sodium [Colace] 100 mg PO PRN PRN #30 capsule PRN Reason: Constipation RX: Metronidazole 500 mg PO Q8 7 Days #21 tablet Polyethylene Glycol 3350 [Miralax] 119 gm PO PRN PRN #1 powder PRN Reason: Constipation - Follow Up Plan Condition: STABLE Disposition: HOME/ ROUTINE Patient education suggested?: Yes Instructions: Proctitis Additional Instructions: Please follow up with PMD in 1 week ER precautions for worsening condition, fever over 100.4 with Tylenol <Viviane Ann - Last Filed: 09/16/18 11:17> Provider - Provider Date of Admission: 09/14/18 17:21 Attending physician: Saravanan Ramirez MD [facility] Course - Lab Results Lab Results: Most Recent Lab Values WBC 14.8 K/uL (4.8-10.8) H 09/16/18 05:25 RBC 4.80 Mil/uL (3.80-5.20) 09/16/18 05:25 Hgb 14.1 g/dL (12.0-16.0) 09/16/18 05:25 Hct 42.5 % (34.0-47.0) 09/16/18 05:25 MCV 88.4 fl (81.0-99.0) 09/16/18 05:25 MCH 29.3 pg (27.0-31.0) 09/16/18 05:25 MCHC 33.1 g/dL (33.0-37.0) 09/16/18 05:25 RDW 13.7 % (11.5-14.5) 09/16/18 05:25 Plt Count 269 K/uL (130-400) 09/16/18 05:25 MPV 8.8 fl (7.2-11.7) 09/16/18 05:25 Neut % (Auto) 81.1 % (50.0-75.0) H 09/16/18 05:25 Lymph % (Auto) 12.8 % (20.0-40.0) L 09/16/18 05:25 [place] % (Auto) 5.6 % (0.0-10.0) 09/16/18 05:25 Eos % (Auto) 0.1 % (0.0-4.0) 09/16/18 05:25 Baso % (Auto) 0.4 % (0.0-2.0) 09/16/18 05:25 Neut # (Auto) 12.0 K/uL (1.8-7.0) H 09/16/18 05:25 Lymph # (Auto) 1.9 K/uL (1.0-4.3) 09/16/18 05:25 [place] # (Auto) 0.8 K/uL (0.0-0.8) 09/16/18 05:25 Eos # (Auto) 0.0 K/uL (0.0-0.7) 09/16/18 05:25 Baso # (Auto) 0.1 K/uL (0.0-0.2) 09/16/18 05:25 PT 12.1 Seconds (9.8-13.1) 09/14/18 12:50 INR 1.1 09/14/18 12:50 APTT 34.0 Seconds (25.6-37.1) 09/14/18 12:50 pO2 34 mm/Hg (30-55) 09/14/18 17:30 VBG pH 7.37 (7.32-7.43) 09/14/18 17:30 VBG pCO2 46 mmHg (40-60) 09/14/18 17:30 VBG HCO3 24.6 mmol/L 09/14/18 17:30 VBG Total CO2 28.0 mmol/L (22-28) 09/14/18 17:30 VBG O2 Sat (Calc) 72.7 % (40-65) H 09/14/18 17:30 VBG Base Excess 0.8 mmol/L (0.0-2.0) 09/14/18 17:30 VBG Potassium 4.4 mmol/L (3.6-5.2) 09/14/18 17:30 Sodium 138.0 mmol/L (132-148) 09/14/18 17:30 Chloride 105.0 mmol/L (98-107) 09/14/18 17:30 Glucose 157 mg/dL (65-105) H 09/14/18 17:30 Lactate 1.4 mmol/L (0.7-2.1) 09/14/18 17:30 FiO2 21.0 % 09/14/18 17:30 Sodium 141 mmol/l (132-148) 09/15/18 05:40 Potassium 4.2 MMOL/L (3.6-5.0) 09/15/18 05:40 Chloride 108 mmol/L (98-107) H 09/15/18 05:40 Carbon Dioxide 26 mmol/L (22-30) 09/15/18 05:40 Anion Gap 11 (10-20) 09/15/18 05:40 BUN 13 mg/dl (7-17) 09/15/18 05:40 Creatinine 0.9 mg/dl (0.7-1.2) 09/15/18 05:40 Est GFR ( Amer) > 60 09/15/18 05:40 Est GFR (Non-Af Amer) > 60 09/15/18 05:40 POC Glucose (mg/dL) 105 mg/dL (65-110) 09/16/18 05:17 Random Glucose 130 mg/dL (65-105) H 09/15/18 05:40 Hemoglobin A1c 6.7 % (4.2-6.5) H 09/15/18 05:40 Calcium 9.2 mg/dL (8.4-10.2) 09/15/18 05:40 Total Bilirubin 0.5 mg/dl (0.2-1.3) 09/14/18 14:15 AST 22 U/L (14-36) 09/14/18 14:15 ALT 28 U/L (9-52) 09/14/18 14:15 Alkaline Phosphatase 104 U/L (38-126) 09/14/18 14:15 Total Protein 7.7 G/DL (6.3-8.2) 09/14/18 14:15 Albumin 4.0 g/dL (3.5-5.0) 09/14/18 14:15 Globulin 3.7 gm/dL (2.2-3.9) 09/14/18 14:15 Albumin/Globulin Ratio 1.1 (1.0-2.1) 09/14/18 14:15 Venous Blood Potassium 4.4 mmol/L (3.6-5.2) 09/14/18 17:30 Urine Color Yellow (YELLOW) 09/14/18 13:05 Urine Clarity Slighty-cloudy (Clear) 09/14/18 13:05 Urine pH 7.0 (5.0-8.0) 09/14/18 13:05 Ur Specific [place] 1.005 (1.003-1.030) 09/14/18 13:05 Urine Protein 30 mg/dL (NEGATIVE) 09/14/18 13:05 Urine Glucose (UA) Neg mg/dL (Normal) 09/14/18 13:05 Urine Ketones Negative mg/dL (NEGATIVE) 09/14/18 13:05 Urine Blood Small (NEGATIVE) 09/14/18 13:05 Urine Nitrate Negative (NEGATIVE) 09/14/18 13:05 Urine Bilirubin Negative (NEGATIVE) 09/14/18 13:05 Urine Urobilinogen 0.2-1.0 mg/dL (0.2-1.0) 09/14/18 13:05 Ur Leukocyte Esterase Neg Swapna/uL (Negative) 09/14/18 13:05 Urine RBC (Auto) 1 /hpf (0-3) 09/14/18 13:05 Urine Microscopic WBC 1 /hpf (0-5) 09/14/18 13:05 Ur Squamous Epith Cells 2 /hpf (0-5) 09/14/18 13:05 Urine Bacteria Few (<OCC) H 09/14/18 13:05 Attending/Attestation - Attestation I have personally seen and examined this patient.: Yes I have fully participated in the care of the patient.: Yes I have reviewed all pertinent clinical information, including history, physical exam and plan: Yes Notes (Text): 09/16/18 11:16 Agree with findings and plan as above. Patient to continue magnesium and naproxen with follow upw ith pcp. patient improved. nad, stable for discharge home with follow up PCP in one week.
== END 2018-09-16 15:05 | disposition home or self-care (01) | DRG 872 ==
LOC: H.ER 11:45 → H.ERHOLD 17:21 → H.MEDSURG1 20:18
DX: A41.9 Sepsis, unspecified organism (principal); E23.2 Diabetes insipidus; E78.5 Hyperlipidemia, unspecified; F17.210 Nicotine dependence, cigarettes, uncomplicated; H40.9 Unspecified glaucoma; H54.61 Unqualified visual loss, right eye, normal vision left eye; I10 Essential (primary) hypertension; K56.41 Fecal impaction; Z79.84 Long term (current) use of oral hypoglycemic drugs; Z90.49 Acquired absence of other specified parts of digestive tract; Z91.81 History of falling; Z90.710 Acquired absence of both cervix and uterus; K62.89 Other specified diseases of anus and rectum; R60.9 Edema, unspecified; E11.39 Type 2 diabetes mellitus with other diabetic ophthalmic complication